=== PATIENT | female | born 1975 | race Caucasian/White ===

== ENCOUNTER 2017-06-05 21:58 | Inpatient (IN) | payer SELFPAY ==
[2017-06-05 22:05] VITALS: BMI 29.5
--- NOTE | 2017-06-05 22:28 | DR.GENAD ---
HPI - PCP Primary Care Physician: PALENCIA - Complaint/Symptoms Chief Complaint Doctors Comments: Patient developed an infection of the right knee two weeks ago, used amoxicillin from friend until gone; infection became generalized of lower extremity with edema and erythema. Knee with tenderness and hyperplasia of the inciting infection. Chief Complaint:: ABCESS ON RT KNEE FOR 2 WEEKS - Source History Provided: Patient - Mode of Arrival Mode of Arrival: Ambulatory - Timing Onset of Chief Complaint: 05/22/17 PMH - PMH Past Medical History: No Past Surgical History: Yes Surgical History: , [employer]MINISTRATOR Surgery Past Surgical History Comment: BRAIN IN 86 - Family History History of Family Medical Conditions: No - Social History Alcohol Use: None Do you use any recreational Drugs:: No Lives With: Family Lives Where: Home - infectious screening In the last 2 months have you had wt loss of >10#?: NO Have you had fever, night sweats or hemotysis?: No Have you traveled outside the country in the last 6 months?: No Isolation: Standard PE - Vital Signs Vitals: Temperature 99.2 F Pulse Rate 93 Respiratory Rate 18 Blood Pressure 134/79 O2 Sat by Pulse Oximetry 100 - General Limitations: No Limitations General Appearance: Alert, In No Apparent Distress - Head Head Exam: Normal Inspection, Atraumatic - Eyes Eye exam: Normal Appearance, PERRL, EOMI - ENT ENT Exam: Normal Exam External Ear Exam: Normal External Inspection TM/Canal Exam: Bilateral Normal Nose Exam: Normal Nose Exam Mouth Exam: Normal Inspection Throat Exam: Normal Inspection - Neck Neck Exam: Normal Inspection, Full ROM - Chest Chest Inspection: Normal Inspection - Respiratory Respiratory Exam: Normal Lung Sounds Bilat Respiratory Exam: Bilateral Clear to Auscultation - Cardiovascular Cardiovascular Exam: Regular Rate, Normal Rhythm - Abdominal Exam Abdominal Exam: Normal Inspection, Normal Bowel Sounds Abdominal Tenderness: negative: RUQ, RLQ, LUQ, LLQ, Epigastrium, Suprapubic, Diffuse, Mild, Moderate, Severe, Other - Extremities Extremities Exam: Normal Inspection, Full ROM, Tenderness, Edema, Joint Swelling , Other (erythematous) - Back Back Exam: Normal Inspection, Full ROM - Neurologic Neurological Exam: Alert, Oriented X3, CN II-XII Intact - Psychiatric Psychiatric Exam: Normal Affect - Skin Skin Exam: Warm, Dry, Intact ROR - Labs Reviewed Result Diagrams: 06/05/17 21:40 06/05/17 21:40 Laboratory: WBC 12.0 X10^3/uL (3.6-10.0) H 06/05/17 21:40 RBC 3.75 X10^6/uL (3.5-5.4) 06/05/17 21:40 Hgb 11.9 g/dL (12.0-16.0) L 06/05/17 21:40 Hct 34.5 % (36.0-47.0) L 06/05/17 21:40 MCV 92.2 fL (80.0-100.0) 06/05/17 21:40 MCH 31.6 pg (27.0-34.0) 06/05/17 21:40 MCHC 34.3 g/dL (33.0-35.0) 06/05/17 21:40 RDW 12.8 % (11.6-16.5) 06/05/17 21:40 Plt Count 236 X10^3/uL (150.0-450.0) 06/05/17 21:40 MPV 8.5 fL (7.4-11.0) 06/05/17 21:40 Neut % 81.1 % (42.0-75.0) H 06/05/17 21:40 Lymph % 11.8 % (21.0-51.0) L 06/05/17 21:40 [place] % 6.1 % (0.0-13.0) 06/05/17 21:40 Eos % 0.7 % (0.9-2.9) L 06/05/17 21:40 Baso % 0.3 % (0.2-1.0) 06/05/17 21:40 Neut # 9.8 x10^3/uL (2.2-4.8) H 06/05/17 21:40 Lymph # 1.4 X10^3/uL (1.3-2.9) 06/05/17 21:40 [place] # 0.7 x10^3/uL (0.3-0.8) 06/05/17 21:40 Eos # 0.1 x10^3/uL (0.0-0.2) 06/05/17 21:40 Baso # 0.0 X10^3/uL (0.0-0.1) 06/05/17 21:40 Absolute Nucleated RBC 0.0 /100WBC 06/05/17 21:40 Sodium 138 mmol/L (136-145) 06/05/17 21:40 Corrected Sodium 138 mmol/L (136-145) 06/05/17 21:40 Potassium 3.5 mmol/L (3.5-5.1) 06/05/17 21:40 Chloride 103 mmol/L (98-107) 06/05/17 21:40 Carbon Dioxide 27.3 mmol/L (21-32) 06/05/17 21:40 BUN 11 mg/dL (7-18) 06/05/17 21:40 Creatinine 0.68 mg/dL (0.55-1.02) 06/05/17 21:40 Est GFR (MDRD) Af Amer > 60 (>60) 06/05/17 21:40 Est GFR (MDRD) Non-Af > 60 (>60) 06/05/17 21:40 Glucose 114 mg/dL (65-99) H 06/05/17 21:40 Calcium 7.9 mg/dL (8.5-10.1) L 06/05/17 21:40 Corrected Calcium TNP 06/05/17 21:40 Total Bilirubin 0.50 mg/dL (0.2-1.0) 06/05/17 21:40 AST 24 Units/L (15-37) 06/05/17 21:40 ALT 34 Units/L (12-78) 06/05/17 21:40 Alkaline Phosphatase 79 Units/L (46-116) 06/05/17 21:40 C-Reactive Protein 107.20 mg/L (0-3.0) H 06/05/17 21:40 Total Protein 7.5 g/dL (6.4-8.2) 06/05/17 21:40 Albumin 3.6 g/dL (3.4-5.0) 06/05/17 21:40 Globulin 3.9 g/dL (2.5-4.5) 06/05/17 21:40 Albumin/Globulin Ratio 0.9 Ratio (1.1-2.1) L 06/05/17 21:40 - Diagnosis Discharge Problem: Cellulitis of right lower limb, Lymphangitis - Discharge Plan Condition: Stable - Follow ups/Referrals Follow ups/Referrals: JANICE PALENCIA [Primary Care Provider] - 3 days - Instructions
[2017-06-05 22:54] LABS: BASOPHILS % (AUTO) 0.3 % (0.2-1.0); EOSINOPHILS # (AUTO) 0.1 x10^3/uL (0.0-0.2); EOSINOPHILS % (AUTO) 0.7 % (0.9-2.9); HEMATOCRIT 34.5 % (36.0-47.0); HEMOGLOBIN 11.9 g/dL (12.0-16.0); LYMPHOCYTES # (AUTO) 1.4 X10^3/uL (1.3-2.9); LYMPHOCYTES % (AUTO) 11.8 % (21.0-51.0); MEAN CORPUSCULAR HEMOGLOBIN 31.6 pg (27.0-34.0); MEAN CORPUSCULAR HGB CONC 34.3 g/dL (33.0-35.0); MEAN CORPUSCULAR VOLUME 92.2 fL (80.0-100.0); MEAN PLATELET VOLUME 8.5 fL (7.4-11.0); MONOCYTES # (AUTO) 0.7 x10^3/uL (0.3-0.8); MONOCYTES % (AUTO) 6.1 % (0.0-13.0); NEUTROPHILS # (AUTO) 9.8 x10^3/uL (2.2-4.8); NEUTROPHILS % (AUTO) 81.1 % (42.0-75.0); PLATELET COUNT 236 X10^3/uL (150.0-450.0); RED BLOOD COUNT 3.75 X10^6/uL (3.5-5.4); RED CELL DISTRIBUTION WIDTH 12.8 % (11.6-16.5)
[2017-06-05 23:07] LABS: ALANINE AMINOTRANSFERASE 34 Units/L (12-78); ALBUMIN 3.6 g/dL (3.4-5.0); ALKALINE PHOSPHATASE 79 Units/L (46-116); ASPARTATE AMINO TRANSFERASE 24 Units/L (15-37); BLOOD UREA NITROGEN 11 mg/dL (7-18); CALCIUM 7.9 mg/dL (8.5-10.1); CARBON DIOXIDE 27.3 mmol/L (21-32); CHLORIDE 103 mmol/L (98-107); COR NA(FOR HYPERGLY) 138 mmol/L (136-145); CREATININE 0.68 mg/dL (0.55-1.02); GLUCOSE 114 mg/dL (65-99); SODIUM 138 mmol/L (136-145); TOTAL PROTEIN 7.5 g/dL (6.4-8.2); eGFR BLACK RACES > 60 (>60); eGFR NON BLACK RACES > 60 (>60)
[2017-06-05] MEDS ORDERED: NS 1000 ML 1,000 ML ONE (23:56)
[2017-06-06] MEDS: NS + KCL 20 MEQ/L 1,000 ML IV SCH ×2 (00:04→13:23)
[2017-06-06] MEDS: VANCOMYCIN 1 GM PREMIX (ADDVANTAGE) 250 ML IV SCH ×3 (00:05→20:35)
[2017-06-06 06:10] LABS: BASOPHILS % (AUTO) 0.3 % (0.2-1.0); EOSINOPHILS # (AUTO) 0.1 x10^3/uL (0.0-0.2); HEMATOCRIT 31.4 % (36.0-47.0); HEMOGLOBIN 10.8 g/dL (12.0-16.0); LYMPHOCYTES # (AUTO) 1.6 X10^3/uL (1.3-2.9); LYMPHOCYTES % (AUTO) 16.2 % (21.0-51.0); MEAN CORPUSCULAR HEMOGLOBIN 31.6 pg (27.0-34.0); MEAN CORPUSCULAR HGB CONC 34.5 g/dL (33.0-35.0); MEAN CORPUSCULAR VOLUME 91.6 fL (80.0-100.0); MONOCYTES # (AUTO) 0.6 x10^3/uL (0.3-0.8); MONOCYTES % (AUTO) 6.4 % (0.0-13.0); NEUTROPHILS # (AUTO) 7.5 x10^3/uL (2.2-4.8); NEUTROPHILS % (AUTO) 76.1 % (42.0-75.0); PLATELET COUNT 214 X10^3/uL (150.0-450.0); RED BLOOD COUNT 3.43 X10^6/uL (3.5-5.4); RED CELL DISTRIBUTION WIDTH 12.8 % (11.6-16.5); WHITE BLOOD COUNT 9.9 X10^3/uL (3.6-10.0)
[2017-06-06 06:32] LABS: ALANINE AMINOTRANSFERASE 28 Units/L (12-78); ALBUMIN 2.9 g/dL (3.4-5.0); ALKALINE PHOSPHATASE 65 Units/L (46-116); ASPARTATE AMINO TRANSFERASE 18 Units/L (15-37); BLOOD UREA NITROGEN 7 mg/dL (7-18); CALCIUM 7.4 mg/dL (8.5-10.1); CARBON DIOXIDE 27.4 mmol/L (21-32); CHLORIDE 107 mmol/L (98-107); COR CA(FOR HYPOALB) 8.3 mg/dL (8.5-10.1); CREATININE 0.44 mg/dL (0.55-1.02); GLUCOSE 97 mg/dL (65-99); SODIUM 140 mmol/L (136-145); TOTAL PROTEIN 6.3 g/dL (6.4-8.2); eGFR BLACK RACES > 60 (>60); eGFR NON BLACK RACES > 60 (>60)
[2017-06-06] MEDS: LOVENOX INJ 80 MG SYR SC SCH ×2 (08:31→20:36)
[2017-06-06] MEDS ORDERED: VANCOMYCIN 1 GM PREMIX (ADDVANTAGE) 250 ML IV SCH (09:00)
[2017-06-06] MEDS ORDERED: AMBIEN PO PRN (20:34)
[2017-06-07 06:07] LABS: BASOPHILS % (AUTO) 0.6 % (0.2-1.0); EOSINOPHILS # (AUTO) 0.1 x10^3/uL (0.0-0.2); EOSINOPHILS % (AUTO) 1.7 % (0.9-2.9); HEMATOCRIT 32.1 % (36.0-47.0); LYMPHOCYTES # (AUTO) 1.9 X10^3/uL (1.3-2.9); LYMPHOCYTES % (AUTO) 25.8 % (21.0-51.0); MEAN CORPUSCULAR HEMOGLOBIN 31.6 pg (27.0-34.0); MEAN CORPUSCULAR HGB CONC 34.1 g/dL (33.0-35.0); MEAN CORPUSCULAR VOLUME 92.8 fL (80.0-100.0); MEAN PLATELET VOLUME 8.4 fL (7.4-11.0); MONOCYTES # (AUTO) 0.5 x10^3/uL (0.3-0.8); MONOCYTES % (AUTO) 6.6 % (0.0-13.0); NEUTROPHILS # (AUTO) 4.8 x10^3/uL (2.2-4.8); NEUTROPHILS % (AUTO) 65.3 % (42.0-75.0); PLATELET COUNT 202 X10^3/uL (150.0-450.0); RED BLOOD COUNT 3.46 X10^6/uL (3.5-5.4); RED CELL DISTRIBUTION WIDTH 12.8 % (11.6-16.5); WHITE BLOOD COUNT 7.3 X10^3/uL (3.6-10.0)
[2017-06-07] MEDS: NS + KCL 20 MEQ/L 1,000 ML IV SCH ×3 (06:16→17:50)
[2017-06-07 06:34] LABS: ALANINE AMINOTRANSFERASE 44 Units/L (12-78); ALBUMIN 2.7 g/dL (3.4-5.0); ALKALINE PHOSPHATASE 72 Units/L (46-116); ASPARTATE AMINO TRANSFERASE 32 Units/L (15-37); BLOOD UREA NITROGEN 4 mg/dL (7-18); CALCIUM 7.7 mg/dL (8.5-10.1); CARBON DIOXIDE 26.6 mmol/L (21-32); CHLORIDE 108 mmol/L (98-107); COR CA(FOR HYPOALB) 8.7 mg/dL (8.5-10.1); CREATININE 0.52 mg/dL (0.55-1.02); GLUCOSE 89 mg/dL (65-99); SODIUM 141 mmol/L (136-145); TOTAL PROTEIN 6.3 g/dL (6.4-8.2); VANCOMYCIN,TROUGH 6.6 ug/mL (15-20); eGFR BLACK RACES > 60 (>60); eGFR NON BLACK RACES > 60 (>60)
[2017-06-07] MEDS: LOVENOX INJ 80 MG SYR SC SCH ×2 (08:36→21:26)
[2017-06-07] MEDS: VANCOMYCIN 1 GM PREMIX (ADDVANTAGE) 250 ML IV SCH ×3 (08:36→21:23)
--- NOTE | 2017-06-07 11:06 | DR.H&P ---
H&P - History & Physical for Day of: H&P Date: 06/06/17 - Chief Complaint Chief Complaint: RIGHT KNEE ABSCESS AND SWELLING - Allergies Allergies/Adverse Reactions: Allergies Allergy/AdvReac Type Severity Reaction Status Date / Time No Known Drug Allergies Allergy Verified 06/05/17 22:00 - History of Present Illness History of Present Illness: IS A 41 YEAR OLD PATIENT OF . SHE PRESENTED TO THE ER WITH COMPLAINTS OF REDNESS, SWELLING, PAIN, AND AN ABSCESS TO THE RIGHT KNEE. PATIENT REPORTS THAT THE ABSCESS HAS BEEN PRESENT FOR THE PAST TWO WEEKS. SHE REPORTS TREATING HERSELF WITH HER SON'S AMOXICILLIN. ON EXAMINATION, RIGHT LOWER EXTREMITY IS NOTED WITH ERYTHEMA AND EDEMA. THERE IS TENDERNESS AND HYPERPLASIA OF THE KNEE. ON ARRIVAL TO THE ER, VITALS WERE 99.2-93-18-100%-134/79. CBC WNL EXCEPT WBC 12.0, HGB 11.9, HCT 34.5. CMP WNL EXCEPT GLUCOSE 114, CALCIUM 7.9, CRP 107.20, A/G Ratio 0.9. BLOOD CULTURES ARE PENDING. WE ADMITTED PATIENT FOR FURTHER TREATMENT AND EVALUATION. WE STARTED PATIENT ON VANCOMYCIN 1GM IV Q12H AND NS WITH 20MEQ KCL AT 80ML/HR. WE PLAN TO RECHECK LABS AND FOLLOW UP WITH PATIENT IN AM. - Past Surgical History Surgical History: , Other Additional Surgical History: BRAIN SURGERY IN 1987. - Family History Family Medical History: Cancer, Hypertension - Social History Does patient currently use any type of tobacco product: No Have you used tobacco products in the last 12 months: No Type of Tobacco Use: None Does any household member use tobacco: No Alcohol Use: None Drug Use: None - Medications Home Medications: NK [NK] 06/06/17 [History Confirmed 06/06/17] - Review of Systems Constitutional: No Symptoms Reported. denies: See HPI, Fever, Chills, Sweats, Weakness, Malaise, Other Eyes: No Symptoms Reported. denies: See HPI, Pain, Vision Change, Conjunctivae Inflammation, Eyelid Inflammation, Redness, Other ENT: No Symptoms Reported. denies: See HPI, Ear Pain, Ear Discharge, Nose Pain , Nose Discharge, Nose Congestion, Mouth Pain, Mouth Swelling, Throat Pain, Throat Swelling, Other Respiratory: No Symptoms Reported. denies: See HPI, Cough, Dry, Shortness of Breath, Hemoptysis, SOB with Excertion, Pleuritic Pain, Sputum, Wheezing, Other Cardiovascular: No Symptoms Reported. denies: Chest Pain, See HPI, Palpitations , Orthopnea, Paroxysmal Noc. Dyspnea, Edema, Light Headedness, Other Gastrointestinal: No Symptoms Reported Genitourinary: No Symptoms Reported Musculoskeletal: See HPI, Leg Pain Skin: Wound (RIGHT LEG ABSCESS, TENDERNESS, JOINT SWELLING, ERYTHEMATOUS ) Neurological: No Symptoms Reported - Physical Exam Vital Signs: Temperature 100.3 F Pulse Rate [Right Brachial] 85 Pulse Rate 93 Respiratory Rate 18 Blood Pressure [Right Arm] 112/53 Blood Pressure 134/79 O2 Sat by Pulse Oximetry 98 Oriented: Normal Eyes: Normal Ear: Normal Nose: Normal Throat: Normal Respiratory: Clear Throughout Cardiovascular: Normal : Normal Auscultation: Bowel Sounds: Normal Palpation: Normal Tenderness: Normal Skin: Red, Tender (RIGHT LEG ), Wound Musculoskeletal: Right, Knee, Leg, Swelling, Tender Psychiatric: Normal Mood Description: Calm Affect: Normal Speech Pattern: Clear - Assessment/Plan (1) Cellulitis of right lower limb Status: Acute Plan: VANCOMYCIN 1GM IV Q12H, LOVENOX 80MG SC BID FOR DVT PROPHYLAXIS, MOTRIN 600MG TID PRN FOR PAIN AND EDEMA,WOUND CULTURES, BLOOD CULTURES, CONTINUE TO MONITOR
--- NOTE | 2017-06-07 11:29 | PCM.PROG ---
Progress Note - Progress Note for Day of Date: 06/07/17 - Subjective Subjective: IS ALERT AND ORIENTED, LYING IN BED ON MORNING ROUNDS. SHE IS NOTED WITH COMPLAINTS OF OF RIGHT LEG TENDERNESS. RIGHT KNEE IS NOTED EDEMATOUS AND WITH ERYTHEMA. THERE IS AN ABSCESS NOTED TO RIGHT KNEE. WE WILL OBTAIN A WOUND CULTURE. VITALS THIS AM ARE 100.3, 85-18-98%-112/53. CBC WNL EXCEPT RBC 3.46, HGB 11.0, HCT 32.1. CMP WNL EXCEPT CHLORIDE 108, BUN 4, CREATININE 0.52, CALCIUM 7.7, TOTAL PROTEIN 6.3, ALBUMIN 2.7. WE WILL CONTINUE WITH CURRENT PLAN OF CARE, RECHECK LABS, AND FOLLOW UP WITH PATIENT IN AM. - Past Medical Family Social History Past Med/Fam/Surg Hx: No changes since H&P Allergies: Allergies No Known Drug Allergies Allergy (Verified 06/05/17 22:00) - Review of Systems ROS: No change since H&P - Vital Signs and I&O's Vital Signs: Temperature 100.3 F Pulse Rate [Right Brachial] 85 Pulse Rate 93 Respiratory Rate 18 Blood Pressure [Right Arm] 112/53 Blood Pressure 134/79 O2 Sat by Pulse Oximetry 98 Intake and Output: Intake & Output 06/04/17 06/05/17 06/06/17 06/07/17 11:59 11:59 11:59 11:59 Intake Total 2927 Balance 2927 - Physical Exam Oriented: Normal Eyes: Normal Ear: Normal Nose: Normal Throat: Normal Respiratory: Normal Cardiovascular: Normal : Normal Auscultation: Bowel Sounds: Normal Palpation: Normal Tenderness: Normal Skin: Red, Tender (RIGHT LEG ), Wound Musculoskeletal: Right, Knee, Leg, Swelling, Tender Psychiatric: Normal Mood Description: Calm Affect: Normal Speech Pattern: Clear - Laboratory and Diagnostics Result Diagrams: 06/07/17 05:40 06/07/17 05:40 Labs: Laboratory WBC 7.3 X10^3/uL (3.6-10.0) 06/07/17 05:40 RBC 3.46 X10^6/uL (3.5-5.4) L 06/07/17 05:40 Hgb 11.0 g/dL (12.0-16.0) L 06/07/17 05:40 Hct 32.1 % (36.0-47.0) L 06/07/17 05:40 MCV 92.8 fL (80.0-100.0) 06/07/17 05:40 MCH 31.6 pg (27.0-34.0) 06/07/17 05:40 MCHC 34.1 g/dL (33.0-35.0) 06/07/17 05:40 RDW 12.8 % (11.6-16.5) 06/07/17 05:40 Plt Count 202 X10^3/uL (150.0-450.0) 06/07/17 05:40 MPV 8.4 fL (7.4-11.0) 06/07/17 05:40 Neut % 65.3 % (42.0-75.0) 06/07/17 05:40 Lymph % 25.8 % (21.0-51.0) 06/07/17 05:40 [place] % 6.6 % (0.0-13.0) 06/07/17 05:40 Eos % 1.7 % (0.9-2.9) 06/07/17 05:40 Baso % 0.6 % (0.2-1.0) 06/07/17 05:40 Neut # 4.8 x10^3/uL (2.2-4.8) 06/07/17 05:40 Lymph # 1.9 X10^3/uL (1.3-2.9) 06/07/17 05:40 [place] # 0.5 x10^3/uL (0.3-0.8) 06/07/17 05:40 Eos # 0.1 x10^3/uL (0.0-0.2) 06/07/17 05:40 Baso # 0.0 X10^3/uL (0.0-0.1) 06/07/17 05:40 Absolute Nucleated RBC 0.1 /100WBC 06/07/17 05:40 D-Dimer 325 ng/mL (0-400) 06/05/17 21:40 Sodium 141 mmol/L (136-145) 06/07/17 05:40 Corrected Sodium TNP 06/07/17 05:40 Potassium 3.7 mmol/L (3.5-5.1) 06/07/17 05:40 Chloride 108 mmol/L (98-107) H 06/07/17 05:40 Carbon Dioxide 26.6 mmol/L (21-32) 06/07/17 05:40 BUN 4 mg/dL (7-18) L 06/07/17 05:40 Creatinine 0.52 mg/dL (0.55-1.02) L 06/07/17 05:40 Est GFR (MDRD) Af Amer > 60 (>60) 06/07/17 05:40 Est GFR (MDRD) Non-Af > 60 (>60) 06/07/17 05:40 Glucose 89 mg/dL (65-99) 06/07/17 05:40 Calcium 7.7 mg/dL (8.5-10.1) L 06/07/17 05:40 Corrected Calcium 8.7 mg/dL (8.5-10.1) 06/07/17 05:40 Total Bilirubin 0.50 mg/dL (0.2-1.0) 06/07/17 05:40 AST 32 Units/L (15-37) 06/07/17 05:40 ALT 44 Units/L (12-78) 06/07/17 05:40 Alkaline Phosphatase 72 Units/L (46-116) 06/07/17 05:40 C-Reactive Protein 107.20 mg/L (0-3.0) H 06/05/17 21:40 Total Protein 6.3 g/dL (6.4-8.2) L 06/07/17 05:40 Albumin 2.7 g/dL (3.4-5.0) L 06/07/17 05:40 Globulin 3.6 g/dL (2.5-4.5) 06/07/17 05:40 Albumin/Globulin Ratio 0.8 Ratio (1.1-2.1) L 06/07/17 05:40 Vancomycin Trough 6.6 ug/mL (15-20) L 06/07/17 05:40 - Plan (1) Cellulitis of right lower limb Status: Acute Plan: VANCOMYCIN 1GM IV Q12H, LOVENOX 80MG SC BID FOR DVT PROPHYLAXIS, MOTRIN 600MG TID PRN FOR PAIN AND EDEMA,WOUND CULTURES, BLOOD CULTURES, CONTINUE TO MONITOR
[2017-06-07] MEDS: MORPHINE SULFATE INJ 4 MG IVP PRN (21:24)
[2017-06-08] MEDS: NS + KCL 20 MEQ/L 1,000 ML IV SCH ×2 (05:27→17:18)
[2017-06-08] MEDS: VANCOMYCIN 1 GM PREMIX (ADDVANTAGE) 250 ML IV SCH ×3 (05:27→21:08)
[2017-06-08] MEDS: MORPHINE SULFATE INJ 4 MG IVP PRN (05:28)
[2017-06-08 05:50] LABS: BASOPHILS % (AUTO) 0.7 % (0.2-1.0); EOSINOPHILS # (AUTO) 0.1 x10^3/uL (0.0-0.2); EOSINOPHILS % (AUTO) 1.6 % (0.9-2.9); HEMATOCRIT 31.9 % (36.0-47.0); LYMPHOCYTES # (AUTO) 1.4 X10^3/uL (1.3-2.9); LYMPHOCYTES % (AUTO) 20.7 % (21.0-51.0); MEAN CORPUSCULAR HEMOGLOBIN 31.8 pg (27.0-34.0); MEAN CORPUSCULAR HGB CONC 34.5 g/dL (33.0-35.0); MEAN CORPUSCULAR VOLUME 92.3 fL (80.0-100.0); MEAN PLATELET VOLUME 8.3 fL (7.4-11.0); MONOCYTES # (AUTO) 0.5 x10^3/uL (0.3-0.8); MONOCYTES % (AUTO) 6.9 % (0.0-13.0); NEUTROPHILS # (AUTO) 4.7 x10^3/uL (2.2-4.8); NEUTROPHILS % (AUTO) 70.1 % (42.0-75.0); PLATELET COUNT 250 X10^3/uL (150.0-450.0); RED BLOOD COUNT 3.46 X10^6/uL (3.5-5.4); RED CELL DISTRIBUTION WIDTH 12.8 % (11.6-16.5); WHITE BLOOD COUNT 6.6 X10^3/uL (3.6-10.0)
[2017-06-08 06:04] LABS: ALANINE AMINOTRANSFERASE 70 Units/L (12-78); ALBUMIN 2.7 g/dL (3.4-5.0); ALKALINE PHOSPHATASE 87 Units/L (46-116); ASPARTATE AMINO TRANSFERASE 43 Units/L (15-37); BLOOD UREA NITROGEN 5 mg/dL (7-18); CALCIUM 7.6 mg/dL (8.5-10.1); CHLORIDE 105 mmol/L (98-107); COR CA(FOR HYPOALB) 8.6 mg/dL (8.5-10.1); GLUCOSE 93 mg/dL (65-99); SODIUM 140 mmol/L (136-145); TOTAL PROTEIN 6.4 g/dL (6.4-8.2); eGFR BLACK RACES > 60 (>60); eGFR NON BLACK RACES > 60 (>60)
[2017-06-08] MEDS: PHENERGAN TAB 25 MG PO PRN ×3 (07:15→21:09)
--- NOTE | 2017-06-08 08:48 | CT ---
CT right knee without contrast Indication: Right knee abscess Technique: Helical CT images of the right knee were obtained without IV contrast. Reformatted images in the coronal and sagittal planes were also generated for review. Comparison: None Findings: The osseous structures and joint spaces of right knee are intact without evidence of acute fracture, malalignment, osteomyelitis or septic arthritis. Apart from mild narrowing of the lateral p atellofemoral compartment, the joint spaces of the knee are preserved. There is no appreciable joint effusion. Evaluation for soft tissue pathology is limited without intravenous contrast. Given these limitations , there is a mixed attenuation collection within the prepatellar subcutaneous soft tissues which marlon ures approximately 3.2 x 1.3 x 2.8 cm in transverse by AP by CC dimension (image 37, series 4 and juanita ge 43, series 9). The collection demonstrates a developing peripheral capsule with moderate surroundi ng subcutaneous edema. No gas within the collection is identified. Additionally, no cortical erosion or periosteal reaction of the patella is seen. The ACL, PCL and extensor mechanism are grossly intact, given limitations of CT. Impression: Developing 3.2 cm abscess/phlegmonous collection within the prepatellar subcutaneous soft tissues wit hout CT evidence of underlying osteomyelitis, septic arthritis or necrotizing infection. Reported By:
[2017-06-08] MEDS: LOVENOX INJ 80 MG SYR SC SCH ×2 (08:57→21:08)
--- NOTE | 2017-06-08 10:07 | PCM.PROG ---
Progress Note - Progress Note for Day of Date: 06/08/17 - Subjective Subjective: IS ALERT AND ORIENTED, LYING IN BED ON MORNING ROUNDS. SHE CONTINUES WITH EDEMA AND ERYTHEMA TO RIGHT KNEE AND LEG. ABSCESS TO KNEE IS DRAINING THIS AM. WE WILL CONSULT FOR I&D IF HE FEELS IT IS APPROPRIATE. VITALS THIS AM ARE 97.9-66-20-96%-118/58. CBC WNL EXCEPT RBC 3.46 , HGB 11.0, HCT 31.9. CMP WNL EXCEPT BUN 5, CREATININE 0.50, CALCIUM 7.6, AST 43 , ALBUMIN 2.7. WOUND CULTURES ARE PENDING. WE WILL OBTAIN A CT OF THE RIGHT LEG AND CONTINUE WITH CURRENT PLAN OF CARE, RECHECK LABS, AND FOLLOW UP WITH PATIENT IN AM. - Past Medical Family Social History Past Med/Fam/Surg Hx: No changes since H&P Allergies: Allergies No Known Drug Allergies Allergy (Verified 06/05/17 22:00) - Review of Systems ROS: No change since H&P - Vital Signs and I&O's Vital Signs: Temperature 97.9 F Pulse Rate [Right Brachial] 66 Pulse Rate 93 Respiratory Rate 20 Blood Pressure [Right Arm] 118/58 Blood Pressure 134/79 O2 Sat by Pulse Oximetry 96 Intake and Output: Intake & Output 06/05/17 06/06/17 06/07/17 06/08/17 11:59 11:59 11:59 11:59 Intake Total 2927 1823 Output Total 1000 Balance 2927 823 - Physical Exam Oriented: Normal Eyes: Normal Ear: Normal Nose: Normal Throat: Normal Respiratory: Normal Cardiovascular: Normal : Normal Auscultation: Bowel Sounds: Normal Palpation: Normal Tenderness: Normal Skin: Red, Tender (RIGHT LEG ), Wound Musculoskeletal: Right, Knee, Leg, Swelling, Tender Psychiatric: Normal Mood Description: Calm Affect: Normal Speech Pattern: Clear, Appropriate - Laboratory and Diagnostics Result Diagrams: 06/08/17 05:00 06/08/17 05:00 Labs: 06/05/17 21:45 Blood Blood Culture - Preliminary 06/05/17 21:40 Blood Blood Culture - Preliminary 06/07/17 10:24 Knee - Right Gram Stain - Final Laboratory WBC 6.6 X10^3/uL (3.6-10.0) 06/08/17 05:00 RBC 3.46 X10^6/uL (3.5-5.4) L 06/08/17 05:00 Hgb 11.0 g/dL (12.0-16.0) L 06/08/17 05:00 Hct 31.9 % (36.0-47.0) L 06/08/17 05:00 MCV 92.3 fL (80.0-100.0) 06/08/17 05:00 MCH 31.8 pg (27.0-34.0) 06/08/17 05:00 MCHC 34.5 g/dL (33.0-35.0) 06/08/17 05:00 RDW 12.8 % (11.6-16.5) 06/08/17 05:00 Plt Count 250 X10^3/uL (150.0-450.0) 06/08/17 05:00 MPV 8.3 fL (7.4-11.0) 06/08/17 05:00 Neut % 70.1 % (42.0-75.0) 06/08/17 05:00 Lymph % 20.7 % (21.0-51.0) L 06/08/17 05:00 [place] % 6.9 % (0.0-13.0) 06/08/17 05:00 Eos % 1.6 % (0.9-2.9) 06/08/17 05:00 Baso % 0.7 % (0.2-1.0) 06/08/17 05:00 Neut # 4.7 x10^3/uL (2.2-4.8) 06/08/17 05:00 Lymph # 1.4 X10^3/uL (1.3-2.9) 06/08/17 05:00 [place] # 0.5 x10^3/uL (0.3-0.8) 06/08/17 05:00 Eos # 0.1 x10^3/uL (0.0-0.2) 06/08/17 05:00 Baso # 0.0 X10^3/uL (0.0-0.1) 06/08/17 05:00 Absolute Nucleated RBC 0.0 /100WBC 06/08/17 05:00 D-Dimer 325 ng/mL (0-400) 06/05/17 21:40 Sodium 140 mmol/L (136-145) 06/08/17 05:00 Corrected Sodium TNP 06/08/17 05:00 Potassium 3.8 mmol/L (3.5-5.1) 06/08/17 05:00 Chloride 105 mmol/L (98-107) 06/08/17 05:00 Carbon Dioxide 28.0 mmol/L (21-32) 06/08/17 05:00 BUN 5 mg/dL (7-18) L 06/08/17 05:00 Creatinine 0.50 mg/dL (0.55-1.02) L 06/08/17 05:00 Est GFR (MDRD) Af Amer > 60 (>60) 06/08/17 05:00 Est GFR (MDRD) Non-Af > 60 (>60) 06/08/17 05:00 Glucose 93 mg/dL (65-99) 06/08/17 05:00 Calcium 7.6 mg/dL (8.5-10.1) L 06/08/17 05:00 Corrected Calcium 8.6 mg/dL (8.5-10.1) 06/08/17 05:00 Total Bilirubin 0.50 mg/dL (0.2-1.0) 06/08/17 05:00 AST 43 Units/L (15-37) H 06/08/17 05:00 ALT 70 Units/L (12-78) 06/08/17 05:00 Alkaline Phosphatase 87 Units/L (46-116) 06/08/17 05:00 C-Reactive Protein 107.20 mg/L (0-3.0) H 06/05/17 21:40 Total Protein 6.4 g/dL (6.4-8.2) 06/08/17 05:00 Albumin 2.7 g/dL (3.4-5.0) L 06/08/17 05:00 Globulin 3.7 g/dL (2.5-4.5) 06/08/17 05:00 Albumin/Globulin Ratio 0.7 Ratio (1.1-2.1) L 06/08/17 05:00 Vancomycin Trough 6.6 ug/mL (15-20) L 06/07/17 05:40 Random Vancomycin 10.3 ug/mL 06/08/17 05:00 - Plan (1) Cellulitis of right lower limb Status: Acute Plan: VANCOMYCIN 1GM IV Q12H, LOVENOX 80MG SC BID FOR DVT PROPHYLAXIS, MOTRIN 600MG TID PRN FOR PAIN AND EDEMA,WOUND CULTURES, BLOOD CULTURES, CONTINUE TO MONITOR
[2017-06-08] MEDS: PROTONIX INJ 40 MG VIAL IVP SCH (13:47)
[2017-06-08] MEDS ORDERED: NS IRRIGATION 500 ML IR ONE (15:31)
[2017-06-09 05:12] LABS: BASOPHILS % (AUTO) 0.4 % (0.2-1.0); EOSINOPHILS # (AUTO) 0.1 x10^3/uL (0.0-0.2); EOSINOPHILS % (AUTO) 1.2 % (0.9-2.9); HEMATOCRIT 32.3 % (36.0-47.0); HEMOGLOBIN 11.1 g/dL (12.0-16.0); LYMPHOCYTES # (AUTO) 1.6 X10^3/uL (1.3-2.9); LYMPHOCYTES % (AUTO) 22.4 % (21.0-51.0); MEAN CORPUSCULAR HEMOGLOBIN 31.7 pg (27.0-34.0); MEAN CORPUSCULAR HGB CONC 34.3 g/dL (33.0-35.0); MEAN CORPUSCULAR VOLUME 92.4 fL (80.0-100.0); MEAN PLATELET VOLUME 8.6 fL (7.4-11.0); MONOCYTES # (AUTO) 0.5 x10^3/uL (0.3-0.8); MONOCYTES % (AUTO) 7.1 % (0.0-13.0); NEUTROPHILS % (AUTO) 68.9 % (42.0-75.0); PLATELET COUNT 270 X10^3/uL (150.0-450.0); RED CELL DISTRIBUTION WIDTH 12.6 % (11.6-16.5); WHITE BLOOD COUNT 7.2 X10^3/uL (3.6-10.0)
[2017-06-09] MEDS: PHENERGAN TAB 25 MG PO PRN ×2 (05:12→21:07)
[2017-06-09] MEDS: VANCOMYCIN 1 GM PREMIX (ADDVANTAGE) 250 ML IV SCH ×3 (05:12→21:07)
[2017-06-09 05:43] LABS: ALANINE AMINOTRANSFERASE 61 Units/L (12-78); ALBUMIN 2.8 g/dL (3.4-5.0); ALKALINE PHOSPHATASE 89 Units/L (46-116); ASPARTATE AMINO TRANSFERASE 31 Units/L (15-37); BLOOD UREA NITROGEN 5 mg/dL (7-18); CALCIUM 8.5 mg/dL (8.5-10.1); CARBON DIOXIDE 28.5 mmol/L (21-32); CHLORIDE 109 mmol/L (98-107); COR CA(FOR HYPOALB) 9.5 mg/dL (8.5-10.1); CREATININE 0.59 mg/dL (0.55-1.02); GLUCOSE 91 mg/dL (65-99); SODIUM 145 mmol/L (136-145); TOTAL PROTEIN 6.5 g/dL (6.4-8.2); eGFR BLACK RACES > 60 (>60); eGFR NON BLACK RACES > 60 (>60)
[2017-06-09] MEDS: NS + KCL 20 MEQ/L 1,000 ML IV SCH ×3 (06:18→21:09)
[2017-06-09] MEDS: PROTONIX INJ 40 MG VIAL IVP SCH (08:52)
[2017-06-09] MEDS: LOVENOX INJ 80 MG SYR SC SCH ×2 (08:53→21:06)
[2017-06-09] MEDS ORDERED: XYLOCAINE 1% and EPINEPHRINE 1:100,000 ONE (11:10)
[2017-06-09] MEDS ORDERED: XYLOCAINE 2% and EPINEPHRINE 1:100,000 ONE (11:10)
--- NOTE | 2017-06-09 11:37 | OR.GENERIC ---
Post-Op Note Generic - Post-Op Note Operative Report: Date of Operation: June 09, 2017 Pre-Operative Diagnosis: Right knee subcutaneous abscess. Post-Operative Diagnosis: Right knee subcutaneous abscess. Procedure: Incision and drainage of right knee subcutaneous abscess. Surgeon: Mark Merritt MD. Anesthesia: Local. Specimen: None. Estimated blood loss: Minimal. Complications: None. Summary: The patient is a 41 year old female who presented with a right knee subcutaneous abscess. The patient was admitted to the hospital for IV antibiotics and surgery consulted. The patient was offered incision and drainage. The risk and benefits of the procedure including difficulty with anesthesia, bleeding, infection, scar formation, delayed healing, as well as recurrence were discussed with the patient. The patient understood these risks and requested the procedure. On June 09, 2017, the right knee was prepped with betadine and draped in the usual fashion. Local anesthetic was infiltrated around the area of induration. A small core of skin was removed sharply. The abscess cavity was entered bluntly. Purulent drainage was noted. All loculations were disrupted bluntly. The abscess cavity was copiously irrigated. Next, the wound was packed with -Iodoform. A sterile dressing was placed. The patient tolerated the procedure. There were no complications. All counts were correct.
[2017-06-09] MEDS: MORPHINE SULFATE INJ 4 MG IVP PRN ×3 (12:49→21:07)
[2017-06-09 13:17] LABS: CREATININE 0.83 mg/dL (0.55-1.02); VANCOMYCIN,TROUGH 13.4 ug/mL (15-20)
[2017-06-09] MEDS: MOTRIN TAB 600 MG PO PRN (19:16)
[2017-06-10 05:17] LABS: BASOPHILS % (AUTO) 0.8 % (0.2-1.0); EOSINOPHILS # (AUTO) 0.1 x10^3/uL (0.0-0.2); HEMATOCRIT 29.9 % (36.0-47.0); HEMOGLOBIN 10.2 g/dL (12.0-16.0); MEAN CORPUSCULAR HEMOGLOBIN 31.6 pg (27.0-34.0); MEAN CORPUSCULAR VOLUME 92.8 fL (80.0-100.0); MEAN PLATELET VOLUME 8.1 fL (7.4-11.0); MONOCYTES # (AUTO) 0.4 x10^3/uL (0.3-0.8); MONOCYTES % (AUTO) 6.9 % (0.0-13.0); NEUTROPHILS # (AUTO) 3.3 x10^3/uL (2.2-4.8); NEUTROPHILS % (AUTO) 56.3 % (42.0-75.0); PLATELET COUNT 255 X10^3/uL (150.0-450.0); RED BLOOD COUNT 3.22 X10^6/uL (3.5-5.4); RED CELL DISTRIBUTION WIDTH 12.6 % (11.6-16.5); WHITE BLOOD COUNT 5.9 X10^3/uL (3.6-10.0)
[2017-06-10 05:29] LABS: ALANINE AMINOTRANSFERASE 58 Units/L (12-78); ALBUMIN 2.5 g/dL (3.4-5.0); ALKALINE PHOSPHATASE 87 Units/L (46-116); ASPARTATE AMINO TRANSFERASE 27 Units/L (15-37); BLOOD UREA NITROGEN 4 mg/dL (7-18); CARBON DIOXIDE 29.5 mmol/L (21-32); CHLORIDE 108 mmol/L (98-107); COR CA(FOR HYPOALB) 9.2 mg/dL (8.5-10.1); GLUCOSE 88 mg/dL (65-99); SODIUM 142 mmol/L (136-145); TOTAL PROTEIN 5.9 g/dL (6.4-8.2); eGFR BLACK RACES > 60 (>60); eGFR NON BLACK RACES > 60 (>60)
[2017-06-10] MEDS: VANCOMYCIN 1 GM PREMIX (ADDVANTAGE) 250 ML IV SCH ×3 (05:36→22:21)
[2017-06-10] MEDS: PHENERGAN TAB 25 MG PO PRN (05:37)
[2017-06-10] MEDS: LOVENOX INJ 80 MG SYR SC SCH ×2 (09:00→21:34)
[2017-06-10] MEDS: PROTONIX INJ 40 MG VIAL IVP SCH (09:01)
[2017-06-10] MEDS: NS + KCL 20 MEQ/L 1,000 ML IV SCH ×2 (09:01→21:00)
[2017-06-10] MEDS: MORPHINE SULFATE INJ 4 MG IVP PRN (17:05)
[2017-06-10 22:07] LABS: CREATININE 0.82 mg/dL (0.55-1.02); VANCOMYCIN,TROUGH 17.7 ug/mL (15-20)
[2017-06-11 05:45] LABS: ALANINE AMINOTRANSFERASE 61 Units/L (12-78); ALBUMIN 2.7 g/dL (3.4-5.0); ALKALINE PHOSPHATASE 98 Units/L (46-116); ASPARTATE AMINO TRANSFERASE 38 Units/L (15-37); BLOOD UREA NITROGEN 5 mg/dL (7-18); CALCIUM 8.3 mg/dL (8.5-10.1); CARBON DIOXIDE 28.9 mmol/L (21-32); CHLORIDE 107 mmol/L (98-107); COR CA(FOR HYPOALB) 9.3 mg/dL (8.5-10.1); CREATININE 0.67 mg/dL (0.55-1.02); GLUCOSE 90 mg/dL (65-99); SODIUM 143 mmol/L (136-145); TOTAL PROTEIN 6.4 g/dL (6.4-8.2); eGFR BLACK RACES > 60 (>60); eGFR NON BLACK RACES > 60 (>60)
[2017-06-11 05:48] LABS: BASOPHILS % (AUTO) 0.5 % (0.2-1.0); EOSINOPHILS # (AUTO) 0.1 x10^3/uL (0.0-0.2); EOSINOPHILS % (AUTO) 1.3 % (0.9-2.9); HEMATOCRIT 32.1 % (36.0-47.0); LYMPHOCYTES # (AUTO) 1.6 X10^3/uL (1.3-2.9); LYMPHOCYTES % (AUTO) 21.4 % (21.0-51.0); MEAN CORPUSCULAR HEMOGLOBIN 31.5 pg (27.0-34.0); MEAN CORPUSCULAR HGB CONC 34.3 g/dL (33.0-35.0); MEAN CORPUSCULAR VOLUME 91.8 fL (80.0-100.0); MEAN PLATELET VOLUME 8.4 fL (7.4-11.0); MONOCYTES # (AUTO) 0.5 x10^3/uL (0.3-0.8); MONOCYTES % (AUTO) 6.7 % (0.0-13.0); NEUTROPHILS # (AUTO) 5.1 x10^3/uL (2.2-4.8); NEUTROPHILS % (AUTO) 70.1 % (42.0-75.0); PLATELET COUNT 286 X10^3/uL (150.0-450.0); RED CELL DISTRIBUTION WIDTH 12.9 % (11.6-16.5); WHITE BLOOD COUNT 7.3 X10^3/uL (3.6-10.0)
[2017-06-11] MEDS: VANCOMYCIN 1 GM PREMIX (ADDVANTAGE) 250 ML IV SCH ×3 (05:55→21:26)
[2017-06-11] MEDS: LOVENOX INJ 80 MG SYR SC SCH ×2 (08:35→21:26)
[2017-06-11] MEDS: PROTONIX INJ 40 MG VIAL IVP SCH (08:37)
[2017-06-11] MEDS: MORPHINE SULFATE INJ 4 MG IVP PRN ×2 (15:50→21:24)
[2017-06-11] MEDS: NS + KCL 20 MEQ/L 1,000 ML IV SCH ×2 (19:04→23:15)
[2017-06-11] MEDS: BACTRIM DS TAB PO SCH (21:33)
[2017-06-11] MEDS: MOTRIN TAB 600 MG PO PRN (22:56)
[2017-06-12 05:49] LABS: CREATININE 0.64 mg/dL (0.55-1.02); VANCOMYCIN,TROUGH 17.2 ug/mL (15-20)
[2017-06-12] MEDS: VANCOMYCIN 1 GM PREMIX (ADDVANTAGE) 250 ML IV SCH (06:16)
[2017-06-12] MEDS: NS + KCL 20 MEQ/L 1,000 ML IV SCH (06:17)
[2017-06-12] MEDS ORDERED: K-DUR TAB 20 MEQ PO SCH (09:00)
[2017-06-12] MEDS: BACTRIM DS TAB PO SCH (09:00)
[2017-06-12] MEDS: PROTONIX INJ 40 MG VIAL IVP SCH (09:00)
[2017-06-12] MEDS: LOVENOX INJ 80 MG SYR SC SCH (09:02)
[2017-06-12 11:24] VITALS: BP 115/55
== END 2017-06-12 12:15 | disposition home or self-care (01) | DRG 603 ==
LOC: ER 22:09 → OBS 06-06 00:36 → MED/SURG 06-07 08:05
PROVIDERS: ADMIT Internal Medicine; ATTEND Obstetrics & Gynecology Obstetrics
PROC: 0J9N3ZZ Drainage of Right Lower Leg Subcutaneous Tissue and Fascia, Percutaneous Approach (ICD-10-PCS; principal; 2017-06-09)
DX: L03.115 Cellulitis of right lower limb (principal); R60.0 Localized edema; I89.1 Lymphangitis; L02.415 Cutaneous abscess of right lower limb; B95.62 Methicillin resistant Staphylococcus aureus infection as the cause of diseases classified elsewhere
CPT/HCPCS: 36415; 73700; 80053; 80202; 82565; 85025; 85378; 86140; 87040; 87070; 87075; 87077; 87186; 87205; 96365; 96374; 96375; 99231; 99284; A4216; A4222; C9113; Q0169; J1650; J2001; J2270; J3370